=== PATIENT | female | born 1950 | race Caucasian/White ===

== ENCOUNTER 2019-12-07 17:36 | Observation (INO) | payer BC, MEDICARE ==
[~2019-12-07] VITALS: Ht 157.5 cm; Wt 54.4 kg
[2019-12-07] MEDS ORDERED: TRAMADOL HCL 50 MG TAB PO NR (18:45)
--- NOTE | 2019-12-07 19:50 | Emergency Department Note ---
History of Present Illnes History of Present Illness Chief Complaint: Flank Pain History of Present Illness This is a 69 year old female .c/o r lateral rib cage pain w/ movement and cough and deeep breath for several days CLIENT HERE FOR RIGHT SIDED RIB PAIN DURING COUGHING, CLIENT STATES THAT THE PAIN IS MINIMAL AT REST AND IS AGGRAVATED BY MOVEMENT. Historian: Patient Arrival Mode: Car Onset (how long ago): day(s) (several days) Location: r lateral rib cage Quality: ,ild Radiation: non-radiation, back, neck, extremity, abdomen, periumbilical, flank, proximal, distal, other Severity: mild Onset quality: gradual Duration (how long): day(s) (several days ) Timing of current episode: constant Progression: unchanged Context: recent illness, recent surgery, recent immobilization, recent travel, trauma/injury, new medications, hx of DVT/PE, non-compliance w/ medications, other Relieving factors: none Exacerbating factors: none Treatments prior to arrival: none (GIBRAN REDMOND NP) Past Medical/Family History Physician Review I have reviewed the patient's past medical and family history. Any updates have been documented here. 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 (GIBRAN REDMOND NP) Social History Smoking Cessation: Never Smoker Alcohol Use: None Any Illegal Drug Use: No TB Exposure/Symptoms: No Physically hurt or threatened: No (GIBRAN REDMOND NP) Family History Family history of heart diseas: No (GIBRAN REDMOND NP) Other Any Pre-Existing Lines (PICC,: No (GIBRAN REDMOND NP) Review of Systems Review of Systems Constitutional: no symptoms EENTM: no symptoms Cardiovascular: no symptoms Respiratory: no symptoms Gastrointestinal: no symptoms Genitourinary: no symptoms Musculoskeletal: no symptoms, other (c/o r side lateral rib cage pain ) Neurological: no symptoms Psychological: no symptoms Endocrine: no symptoms Hematological/Lymphatic: no symptoms Review of other systems All other systems reviewed and negative. (GIBRAN REDMOND NP) Physical Exam Related Data Allergies: Coded Allergies: acetaminophen (Verified Allergy, Severe, RASH, 12/07/19) hydrocodone (Verified Allergy, Severe, RASH, 12/07/19) Triage Vital Signs Vital Signs Date Time Temp Pulse Resp B/P (MAP) Pulse Ox O2 Delivery O2 Flow Rate FiO2 12/07/19 18:32 97.7 97 16 134/88 97 Vital signs reviewed: Yes (GIBRAN REDMOND NP) Physical Exam CONSTITUTIONAL Constitutional: well-developed, well-nourished HENT HENT: normocephalic, atraumatic, oropharynx clear/moist, nose normal HENT L/R: left ext ear normal, right ext ear normal EYES Eyes: PERRL, conjunctivae normal NECK Neck: ROM normal PULMONARY Pulmonary: effort normal, breath sounds normal, other (no sob ); respiratory distress, rales, rhonchi, chest tenderness CARDIOVASCULAR Cardiovascular: regular rhythm, heart sounds normal, capillary refill normal, normal rate GASTROINTESTINAL Abdominal: soft, nontender, bowel sounds normal GENITOURINARY Genitourinary: exam deferred SKIN Skin: warm, dry MUSCULOSKELETAL Musculoskeletal: ROM normal, other (r side lateral rib cage pain w/ ttp noted no crepitus denies trauma ) NEUROLOGICAL Neurological: alert, oriented x 3, no gross motor or sensory deficits PSYCHOLOGICAL Psychological: mood/affect normal, judgement normal (GIBRAN REDMOND NP) Results Imaging Impressions IMPRESSION: No acute radiographic abnormality, no displaced rib fracture. Degenerative changes in the spine and shoulders. Signed by: Blu Faria DO on 12/07/2019 8:09 PM Dictated By: BLU FARIA DO 08 Transcribed By: GLENNY on 12/07/192008 COPY TO: GIBRAN REDMOND NP~ (GIBRAN REDMOND NP) Critical Care Time Subsequent provider I assumed direction of critical care for this patient from another provider of my specialty. (GIBRAN REDMOND NP) Assessment & Plan Reassessment Reassessment This is a 69 year old female .c/o r lateral rib cage pain w/ movement and cough and deep breath for several days Dr Dominique in eval pt status (GIBRAN REDMOND NP) Assessment & Plan Final Impression: (1) CHONDROCOSTAL JUNCTION SYNDROME [TIETZE] Assessment & Plan discussed rad results plan of care and f/u instructions plan: 1. f/u w/ pcp in 2 days w/o fail 2. tylenol and motrin 3. return to ed as needed 4. ultram lidocaine patch (GIBRAN REDMOND NP) Assessment & Plan 69-year-old female brought to the ED with complaints of right flank pain, patient reevaluated by me. Evaluation. He is noted to be febrile inability to tolerate oral intake. Patient was seated And pelvis which was consistent with cystitis. Concerns of pyelonephritis/early pyelonephritis due to UTI. Patient admitted for monitoring and IV antibiotics. (ETTA DOMINIQUE DO) Last Vital Signs Date Time Temp Pulse Resp B/P (MAP) Pulse Ox O2 Delivery O2 Flow Rate FiO2 12/07/19 18:32 97.7 97 16 134/88 97 (GIBRAN REDMOND NP) Medications in the ED Tramadol HCl 100 mg ONCE PO ; Start 12/07/19 at 18:45; Stop 12/07/19 at 19:59 (GIBRAN REDMOND NP) GIBRAN REDMOND NP December 07, 2019 19:50 ETTA DOMINIQUE DO December 08, 2019 02:15
--- NOTE | 2019-12-07 20:13 | Diagnostic Imaging Report ---
X-ray chest 1 view and right RIBS 3 views HISTORY: Pain. COMPARISON: None available. FINDINGS: No acute cardiopulmonary abnormality. Aortic calcifications. Bones: No acute displaced fracture. Osseous alignment is within normal limits. Joints: The joint spaces are well-maintained. Degenerative changes in the spine and shoulders. Soft tissues: The soft tissues appear unremarkable. IMPRESSION: No acute radiographic abnormality, no displaced rib fracture. Degenerative changes in the spine and shoulders. Signed by: Blu Faria DO on 12/07/2019 8:09 PM
[2019-12-07] MEDS ORDERED: IBUPROFEN 600 MG TAB PO STA (21:54)
[2019-12-07 22:53] LABS: BASOPHILS % 0.3 % (0.0-1.0); EOSINOPHILS % 0.3 % (0.0-6.0); HEMATOCRIT 36.6 % (34.2-44.1); HEMOGLOBIN 11.9 g/dL (12.0-16.0); LYMPHOCYTES # (AUTO) 1.6 (1.0-3.2); LYMPHOCYTES % 15.7 % (18.0-39.1); MEAN CORPUSCULAR HEMOGLOBIN 29.4 pg (28-32); MEAN CORPUSCULAR HGB CONC 32.5 g/dL (31-35); MEAN CORPUSCULAR VOLUME 90.4 fL (81-99); MONOCYTES # (AUTO) 0.9 (0.2-0.8); MONOCYTES % 8.3 % (4.4-11.3); NEUTROPHILS # (AUTO) 7.9 (2.1-6.9); PLATELET COUNT 217 x10e3/uL (140-360); RED BLOOD COUNT 4.05 x10e6/uL (3.6-5.1); RED CELL DISTRIBUTION WIDTH 13.6 % (11.7-14.4)
[2019-12-07 23:07] LABS: ALANINE AMINOTRANSFERASE 20 IU/L (0-55); ALBUMIN 4.1 g/dL (3.5-5.0); ALBUMIN/GLOBULIN RATIO 1.1 (0.8-2.0); ALKALINE PHOSPHATASE 93 IU/L (40-150); ANION GAP 16.6 mmol/L (8-16); BLOOD UREA NITROGEN 21 mg/dL (7-26); BUN/CREATININE RATIO 28 (6-25); CALCIUM 9.9 mg/dL (8.4-10.2); CARBON DIOXIDE 25 mmol/L (22-29); CHLORIDE 101 mmol/L (98-107); CREATINE KINASE 98 IU/L (29-168); CREATININE, SERUM 0.76 mg/dL (0.57-1.11); EST GLOMERULAR FILTRATION RATE > 60 ML/MIN (60-); GLUCOSE 110 mg/dL (74-118); POTASSIUM 3.6 mmol/L (3.5-5.1); SODIUM 139 mmol/L (136-145)
[2019-12-07] MEDS ORDERED: SODIUM CHLORIDE 0.9% 50ML 50 ML ONE (23:36)
[2019-12-07] MEDS ORDERED: IOPAMIDOL 370 MG/ML 200 ML INFUS..BTL INJ ONE (23:36)
--- NOTE | 2019-12-08 01:15 | Diagnostic Imaging Report ---
EXAM: CT Abdomen and Pelvis WITH contrast INDICATION: Abdominal pain , right-sided flank pain, fever COMPARISON: None. TECHNIQUE: Abdomen and pelvis were scanned utilizing a multidetector helical scanner from the lung base to the pubic symphysis after administration of IV contrast. Coronal and sagittal reformations were obtained. Routine protocol was performed. Scan was performed when during portal venous phase. IV CONTRAST: 100 mL of Isovue 370 ORAL CONTRAST: None COMPLICATIONS: None RADIATION DOSE: Total DLP: 214 mGy*cm Estimated effective dose: (DLP x 0.015 x size factor) mSv CTDIvol has been reviewed. It is below the limits set by the Radiation Protocol Committee (RPC). Dose modulation, iterative reconstruction, and/or weight based adjustment of the mA/kV was utilized to reduce the radiation dose to as low as reasonably achievable. FINDINGS: LINES and TUBES: None. LOWER THORAX: Bibasilar atelectasis. HEPATOBILIARY: Tiny hypodensities are too small to characterize, likely benign. No biliary ductal dilation. GALLBLADDER: No radio-opaque stones or sludge. No wall thickening. SPLEEN: No splenomegaly. Calcified splenic granuloma PANCREAS: No focal masses or ductal dilatation. ADRENALS: No adrenal nodules KIDNEYS/URETERS: Kidneys enhance symmetrically. No hydronephrosis. No cystic or solid mass lesions. No stones. GI TRACT: No abnormal distention, wall thickening, or evidence of bowel obstruction. Moderate colonic stool volume. Appendix is normal. PELVIC ORGANS/BLADDER: Urinary bladder under distended with mild circumferential urinary bladder wall thickening. Unremarkable. LYMPH NODES: No lymphadenopathy. VESSELS: Arterial calcifications. PERITONEUM / RETROPERITONEUM: No free air or fluid. BONES: Partially visualized right mid femoral intramedullary ossification and right thigh atrophy. Degenerative changes in the spine. Mild anterolisthesis of L4 on L5. SOFT TISSUES: Unremarkable. IMPRESSION: 1. Mild circumferential urinary bladder wall thickening, correlate with urinalysis. 2. Moderate colonic stool volume, correlate for constipation. Signed by: Blu Faria DO on 12/08/2019 1:12 AM
[2019-12-08] MEDS ORDERED: CEFTRIAXONE SOD 1 GM/NS 50 ML 50 ML IV SCH (02:15)
--- OUTSIDE RECORDS SUMMARY | 2019-12-08 03:30 | XMS REPORT ---
Author Author [facility] t Organization [facility] Address [address] [place] [address] [place] [id number] Phone Unavailable Care Team Providers Care Physically Impaired Teacher Name Role Phone Estela GOMEZ Attphys Unavailable Problems This patient has no known problems. Allergies, Adverse Reactions, Alerts This patient has no known allergies or adverse reactions. Medications This patient has no known medications. Procedures This patient has no known procedures. Results Test Description Test Time Test Comments Results Result Comments Source CT ABDOMEN/PELVIS W 2019-12-08 00:11:00 [place] [id number] Patient Name: ALTAF RENE MR #: [id number] : 1950 Age/Sex: 69/F Req #: [id number] Adm Physician: Ordered by: ETTA DOMINIQUE DO Report #: [id number] Location: ER Room/Bed: Procedure: [id number] CT/CT ABDOMEN/PELVIS W Exam Date: 12/07/19 Exam Time: 2339 REPORT STATUS: Signed EXAM: CT Abdomen and Pelvis WITH contrast INDICATION: Abdominal pain , right-sided flank pain, fever COMPARISON: None. TECHNIQUE: Abdomen and pelvis were scanned utilizing a multidetector helical scanner from the lung base to the pubic symphysis after administration of IV contrast. Coronal and sagittal reformations were obtained. Routine protocol was performed. Scan was performed when during portal venous phase. IV CONTRAST: 100 mL of Isovue 370 ORAL CONTRAST: None COMPLICATIONS: None RADIATION DOSE: Total DLP: 214 mGy*cm Estimated effective dose: (DLP x 0.015 x size factor) mSv CTDIvol has been reviewed. It is below the limits set by the Radiation Protocol Committee (RPC). Dose modulation, iterative reconstruction, and/or weight based adjustment of the mA/kV was utilized to reduce the radiation dose to as low as reasonably achievable. FINDINGS: LINES and TUBES: None. LOWER THORAX: Bibasilar atelectasis. HEPATOBILIARY: Tiny hypodensities are too small to characterize, likely benign. No biliary ductal dilation. GALLBLADDER: No radio-opaque stones or sludge. No wall thickening. SPLEEN: No splenomegaly. Calcified splenic gra nuloma PANCREAS: No focal masses or ductal dilatation. ADRENALS: No adrenal nodules KIDNEYS/URETERS: Kidneys enhance symmetrically. No hydronephrosis. No cystic or solid mass lesions. No stones. GI TRACT: No abnormal distention, wall thickening, or evidence of bowel obstruction. Moderate colonic stool volume. Appendix is normal. PELVIC ORGANS/BLADDER: Urinary bladder under distended with mild circumferential urinary bladder wall thickening. Unremarkable. LYMPH NODES: No lymphadenopathy. VESSELS: Arterial calcifications. PERITONEUM / RETROPERITONEUM: No free air or fluid. BONES: Partially visualized right mid femoral intramedullary ossification and right thigh atrophy. Degenerative changes in the spine. Mild anterolisthesis of L4 on L5. SOFT TISSUES: Unremarkable. IMPRESSION: 1. Mild circumferential urinary bladder wall thickening, correlate with urinalysis. 2. Moderate colonic stool volume, correlate for constipation. Signed by: Blu Faria DO on 12/08/2019 1:12 AM Dictated By: BLU FARIA DO 1 Transcribed By: GLENNY on 12/08/19111 COPY TO: ETTA DOMINIQUE DO RIBS UNILAT W/CXR 2019-12-07 20:07:00 [place] [id number] Patient Name: ALTAF RENE MR #: [id number] : 1950 Age/Sex: 69/F Req #: [id number] Adm Physician: Ordered by: GIBRAN REDMOND DRUG ROOM CLERK Report #: [id number] Location: ER Room/Bed: Procedure: [id number] DX/RIBS UNILAT W/CXR Exam Date: 12/07/19 Exam Time: 1854 REPORT STATUS: Signed X-ray chest 1 view and right RIBS 3 views HISTORY: Pain. COMPARISON: None available. FINDINGS: No acute cardiopulmonary abnormality. Aortic calcifications. Bones: No acute displaced fracture. Osseous alignment is within normal limits. Joints: The joint spaces are well-maintained. Degenerative changes in the spine and shoulders. Soft tissues: The soft tissues appear unremarkable. IMPRESSION: No acute radiographic abnormality, no displaced rib fracture. Degenerative changes in the spine and shoulders. Signed by: Blu Faria DO on 12/07/2019 8:09 PM Dictated By: BLU FARIA DO 08 Transcribed By: GLENNY on 12/07/192008 COPY TO: GIBRAN REDMOND NP
[2019-12-08 04:45] LABS: CLARITY,URINE CLEAR (CLEAR); COLOR,URINE YELLOW (YELLOW)
[2019-12-08 04:46] LABS: BILIRUBIN,URINE NEGATIVE (NEGATIVE); KETONES,URINE NEGATIVE (NEGATIVE); LEUKOCYTE ESTERASE ,URINE NEGATIVE (NEGATIVE); NITRITE,URINE NEGATIVE (NEGATIVE); PROTEIN,URINE DIPSTICK NEGATIVE (NEGATIVE); URINE UROBILINOGEN 0.2 mg/dL (0.2 - 1)
[2019-12-08 04:47] LABS: BACTERIA,URINE FEW /HPF; EPITHELIAL CELLS,URINE RARE /LPF; RBC,URINE 0-5 /HPF (0-5); WBC,URINE (MAN) 0-5 /HPF (0-5)
--- NOTE | 2019-12-08 07:18 | NUR ---
REPORT GIVEN TO JANNIE COLON
[2019-12-08] MEDS ORDERED: FAMOTIDINE 20 MG TAB PO SCH (09:15)
[2019-12-08] MEDS ORDERED: KETOROLAC TROMETHAMINE 30 MG/ML VIAL IV PRN (09:15)
[2019-12-08] MEDS ORDERED: CELECOXIB 100 MG CAP PO SCH (09:15)
--- NOTE | 2019-12-08 10:02 | NUR ---
DR. OLIVAS MET W/ CM AND STATED HE CHANGED PT TO OBSERVATION, AND THAT THE PT SHOULD NEVER HAVE BEEN INPATIENT.
--- NOTE | 2019-12-08 10:20 | NUR ---
BRENDON SAW PT THIS AM. TOLD PT SHE COULD GO HOME, PT DID NOT WANT TO, PT NOW INSIST ON LEAVING AMA. COUNSELED PT TO HAVE CT PER MD ORDER, PT STATES SHE DID NOT WANT TO HAVE TEST ANYMORE AND INSISTED ON IV OUT AND TO LEAVE. IV REMOVED AND AMA SIGNED AND LEFT.
--- NOTE | 2019-12-08 15:19 | History and Physical ---
The patient is on observation. Observation date is December 08, 2019. CHIEF COMPLAINT: Right-sided lateral rib cage and chest pain. The pain increases with movement and deep cough. Pain worse when she laid down. The patient also complained of low-grade fever. HISTORY OF PRESENT ILLNESS: The patient is a 69-year-old female, came in with complaint of right-sided lateral rib cage pain. The pain is severe at times. The patient describes it as 10/10. Currently, the patient is having pain approximately 3/10. The pain started approximately one month ago and then it went away and now came back in which brought the patient to the emergency room. The patient looks nontoxic. She is ambulatory. She is stable. No cough. No shortness of breath. No nausea or vomiting. No fever at this time. The patient does take deep breath without significant discomfort at this time. The patient stated, however, last night was quite severe pain. Chest x-ray in the emergency room did not show any significant abnormalities same with the rib cage x-ray as well. The patient also had a CT scan of abdomen and pelvis showed mild thickening of urinary bladder, but the urinalysis showed few bacteria, negative leukocyte esterase and just trace blood. The patient is otherwise stable. She is not in distress, nontoxic at this time. No left-sided chest pain. No radiating pain. 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 The patient is wearing a prosthesis. Dyslipidemia. SOCIAL HISTORY: The patient does not smoke or use alcohol. No regular drugs. ALLERGIES: TO ACETAMINOPHEN AND HYDROCODONE. HOME MEDICATIONS: None. PHYSICAL EXAMINATION: VITAL SIGNS: Temperature is 98.9, blood pressure 119/69, pulse rate 70, and respirations 16. GENERAL: The patient is not in acute distress. She is awake. She is ambulatory, nontoxic. HEENT: Normocephalic and atraumatic. Pupils reactive. Anicteric. NECK: Supple grossly. PULMONARY: Clear. CARDIOVASCULAR: S1, S2. Regular rate and rhythm. ABDOMEN: Soft, non-distention. EXTREMITIES: Right AKA, but otherwise no edema or cyanosis. NEUROLOGIC: There is no focal deficit. LABORATORY DATA: WBC 10.5, hemoglobin 11.9, hematocrit 36.6, and platelets is 217. Chemistry; sodium 139, potassium 3.6, chloride 101, bicarb 25, BUN is 21, creatinine 0.7, and glucose is 110. IMAGING: Chest x-ray otherwise unremarkable. CT scan of abdomen and pelvis showed that the patient had mild circumferential urinary bladder wall thickening. Correlated with urinalysis. See my note above. Moderate colonic stool volume. Constipation. Urinalysis, yellow clear urine, pH of 6. Urine blood trace. Urine leukocyte esterase negative, bacteria few. RBC 0-5, WBC 0-5. IMPRESSION: 1. Right-sided soft tissue chest pain, reproducible, could be soft tissue costochondritis. 2. Trace urine blood. Discussed with the patient regarding if the trace urine blood remains there with thickening urinary bladder, the patient may need cystoscopy at a later date. PLAN: 1. We will continue with the antibiotics for presumed if urinary tract infection in light of leukocyte esterase negative and few bacteria but with thickened urinary bladder. 2. Obtain a CT chest with contrast. 3. Pain medication, NSAID may help. Plan is as the above and we will continue to monitor the patient closely. MD LUCIANA aRmesh/MAY /[id number]
== END 2019-12-08 10:33 | disposition left against medical advice (07) ==
LOC: ER 17:36 → ERHOLD 12-08 03:26 → INTOOBSV 12-08 03:26
PROVIDERS: ADMIT Internal Medicine; ATTEND Internal Medicine
DX: R07.9 Chest pain, unspecified (principal); K59.00 Constipation, unspecified; R31.9 Hematuria, unspecified; Z11.59 Encounter for screening for other viral diseases
CPT/HCPCS: 36415; 71101; 74177; 80053; 81001; 82550; 82553; 84484; 85025; 87635; 93005; 99284; G0378; J0696; Q9967